=== PATIENT | male | born 1965 | race African-American/Black ===

== ENCOUNTER 2017-08-03 18:11 | Emergency (ER) | payer SELFPAY ==
[2017-08-03 18:13] VITALS: BP 125/87; PULSE 88; RESP 15; TEMP 98.6; O2SAT 96
--- NOTE | 2017-08-03 19:11 | PD ---
HPI Chief Complaint: Musculoskeletal Complaint Time Seen by Provider: 19:04 Travel History International Travel<30 days: No Contact w/Intl Traveler<30days: No Traveled to known affect area: No History of Present Illness HPI 52-year-old black male presents to emergency department with complaints of right sided neck and right sided head pain over last 2 days. He denies any constitutional sickness. No fever chills, runny nose, cough, congestion, sore throat. He denies any dental pain. He's never had any history of pain of this nature. No numbness or tingling. History Past Medical Histgory Medical History: Denies Significant Hx Past Surgical History Surgical History: No Previous Surgery Social History Alcohol Use: Yes (4-8 BEERS DAILY) Tobacco Use: No Allergies-Medications (Allergen,Severity, Reaction): Coded Allergies: No Known Allergies (Verified , 07/10/16) Reported Meds & Prescriptions Reported Meds & Active Scripts Active No Active Prescriptions or Reported Medications Review of Systems Except as stated in HPI: all other systems reviewed are Neg Physical Exam Narrative GENERAL: Well-developed, well-nourished in no acute distress. Nontoxic appearing. HEAD: Normocephalic, atraumatic. EYES: Pupils equal round and reactive. Extraocular motions intact. No scleral icterus. No injection or drainage. ENT: TMs clear without erythema. The external auditory canals clear. Nose: clear . Posterior pharynx is pink and moist. No tonsillar edema or exudate. Uvula midline. Airway patent. NECK: Trachea midline.Supple, patient has some mild right posterior cervical adenopathy, moves head freely. No central bony tenderness or spasm. CARDIOVASCULAR: Regular rate and rhythm without murmurs, gallops, or rubs. RESPIRATORY: Clear to auscultation. Breath sounds equal bilaterally. No wheezes , rales, or rhonchi. GASTROINTESTINAL: Abdomen soft, non-tender, nondistended. No hepato-splenomegaly , or palpable masses. No guarding. EXTREMITIES: No clubbing, cyanosis, or edema. No joint tenderness, effusion, or edema noted. BACK: Nontender without deformity or crepitance. No flank tenderness. Data Data Last Documented VS Vital Signs Date Time Temp Pulse Resp B/P (MAP) Pulse Ox O2 Delivery O2 Flow Rate FiO2 08/03/17 18:13 98.6 88 15 125/87 (100) 96 Room Air MDM Medical Screen Exam Complete: Yes Emergency Medical Condition: No Differential Diagnosis Differential diagnoses: Cervical adenitis, dental infection, strep throat, otitis media, otitis externa, TMJ, cephalgia Narrative Course A medical screening exam was performed: At the time of evaluation the presenting medical condition was determined not to be of an emergent nature. The patient was given the option of receiving additional care, but declined. Patient was given options for additional community resources from which to obtain care. The Patient Has Been advised to seek medical attention for their presenting complaint. The patient has been advised to return to the ER at any time if an emergent condition develops. Primary Impression: Encounter for medical screening examination Scripts No Active Prescriptions or Reported Meds Condition: Pedro Tarango Aug 03, 2017 19:11
== END 2017-08-03 19:16 | disposition left against medical advice (07) ==
LOC: NEPK 18:11
DX: R51 Headache (principal)
CPT/HCPCS: 99281